=== PATIENT | female | born 1955 | race Caucasian/White ===

== ENCOUNTER 2016-07-17 19:15 | Emergency (ER) | payer MEDICARE ==
[2016-07-17 19:46] VITALS: BP 125/72
[2016-07-17] MEDS ORDERED: Ketorolac 60 MG/2 ML SDV ONE (19:52)
[2016-07-17] MEDS ORDERED: Ketorolac 30 MG/ML SDV IM ONE (19:52)
--- NOTE | 2016-07-17 19:59 | EDM.PDOC ---
ED HPI GENERAL MEDICAL PROBLEM - General Chief Complaint: Lower Extremity Injury/Pain Stated Complaint: ?? LEFT LEG SWOLLEN Time Seen by Provider: 07/17/16 19:38 Source of Information: Reports: Patient History Limitations: Reports: No Limitations - History of Present Illness INITIAL COMMENTS - FREE TEXT/NARRATIVE: Patient presents with left leg swelling and pain that started today while at work. She stands for about 7 hours a day at work and has worked at this job for two months. She has had symptoms like this before a couple of times but not in recent months. This is worse than the previous episodes. She rates the pain at 6/10. She smokes 1.5 ppd. Drinks at least 2 drinks a day. No history of DVT. She has some chronic dyspnea with her smoking. - Related Data Allergies Allergy/AdvReac Type Severity Reaction Status Date / Time beclomethasone [From Qvar] Allergy Chest Verified 01/02/16 09:57 Presssure cyclobenzaprine Allergy Edema Verified 01/02/16 09:57 lidocaine Allergy Anaphylactic Verified 01/02/16 09:57 Shock loperamide Allergy Rash Verified 12/29/15 08:22 peanut Allergy UNKNOWN Verified 12/29/15 08:22 Sulfa (Sulfonamide Allergy Anaphylactic Verified 01/02/16 09:57 Antibiotics) Shock sumatriptan Allergy Nausea Verified 01/02/16 09:57 casting material fiberglass Allergy Edema Uncoded 12/29/15 08:22 METALS Allergy Itching Uncoded 12/29/15 08:22 Home Meds: Home Meds Albuterol [Ventolin HFA] 2 puff INH Q4H PRN 02/25/13 [History] Doxepin [SINEquan] 150 mg PO BEDTIME 02/25/13 [History] Furosemide [Lasix] 40 mg PO QAM 02/25/13 [History] Meloxicam [Mobic] 15 mg PO DAILY 02/25/13 [History] Sertraline HCl 200 mg PO QAM 02/25/13 [History] LORazepam [Ativan] 0.5 mg PO BID PRN 08/26/14 [History] Levothyroxine [Synthroid] 50 mcg PO DAILY 09/16/14 [History] Albuterol/Ipratropium [DuoNeb 3.0-0.5 MG/3 ML] 3 ml NEB Q6HRRT PRN 10/10/14 [ History] Acetaminophen 1,000 mg PO Q4H PRN 12/29/15 [History] Furosemide 20 mg PO WITHLUNCH 12/29/15 [History] Past Medical History HEENT History: Reports: Cataract Cardiovascular History: Reports: SOB on Exertion Respiratory History: Reports: COPD, Pneumonia, Recurrent, SOB, Other (See Below) Other Respiratory History: Duoneb 2x sdaily prn Gastrointestinal History: Reports: Cholelithiasis, GERD Genitourinary History: Reports: Renal Calculus 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: Neurological History: Reports: Migraines Psychiatric History: Reports: ADD, Anxiety, Depression, Mood Swings Endocrine/Metabolic History: Reports: Hypoparathyroidism Oncologic (Cancer) History: Reports: Cervix - Past Surgical History HEENT Surgical History: Reports: Cataract Surgery Female Surgical History: Reports: Section, Cervical Conization, Hysterectomy Social & Family History - Tobacco Use Smoking Status *Q: Current Every Day Smoker Years of Tobacco use: 45 Packs/Tins Daily: 1.5 Used Tobacco, but Quit: No Second Hand Smoke Exposure: No - Caffeine Use Caffeine Use: Reports: Coffee, Soda - Alcohol Use Days Per Week of Alcohol Use: 7 Number of Drinks Per Day: 2 Total Drinks Per Week: 14 - Recreational Drug Use Recreational Drug Use: No Drug Use in Last 12 Months: No - Living Situation & Occupation Living situation: Reports: Occupation: Disabled Review of Systems - Review of Systems Review Of Systems: See Below Eyes: Denies: Blurred Vision, Vision Change Ears: Denies: Dizziness Nose: Denies: Epistaxis Mouth/Throat: Denies: Bleeding Respiratory: Denies: Shortness of Breath Cardiovascular: Denies: Chest Pain, Lightheadedness, Syncope GI/Abdominal: Denies: Abdominal Pain Musculoskeletal: Reports: Leg Pain (The left leg is tender to firm palpation or squeezing throughout. Left calf measures 36.5 cm compared to 35.5 on right. Left leg is slightly warmer to touch. Heather's is negative. Mild edema bilat.) Skin: Reports: No Symptoms. Denies: Cyanosis, Jaundice, Mottled, Pallor, Diaphoresis Neurological: Denies: Confusion, Dizziness, Headache Psychiatric: Denies: Confusion Trauma Exam - Physical Exam Exam: See Below Exam Limited By: No Limitations General Appearance: Reports: Alert, WD/WN, No Apparent Distress Head: Reports: Atraumatic, Normocephalic Eyes: Bilateral Eye: EOMI, Normal Inspection, PERRL Ears: Reports: Normal External Exam, Hearing Grossly Normal Nose: Reports: Normal Inspection, No Blood Throat/Mouth: Reports: Normal Lips, Normal Voice, No Airway Compromise Neck: Reports: Full Range of Motion Respiratory Exam: Reports: No Respiratory Distress, No Accessory Muscle Use, Rhonchi (Mild, fine rhonchi bilat) Cardiovascular: Reports: Regular Rate, Rhythm, No Murmur GI/Abdominal: Reports: No Distention, Pelvis Stable Back: Denies: CVA Tenderness (R), CVA Tenderness (L) Extremities: No Evidence of Injury, Normal Range of Motion, Pedal Edema (mild bilat), Tenderness (Left leg is tender to palpation throughout lower leg and thigh. Heather's negative.) Neurologic: Reports: No Motor/Sensory Deficits, Alert, Normal Mood/Affect, Oriented x 3 Skin: Reports: Normal Color, Warm/Dry - Emiliano Coma Score Best Eye Response (Emiliano): (4) Open Spontaneously Best Verbal Response ([place]): (5) Oriented Best Motor Response ([place]): (6) Obeys Commands Course - Vital Signs Last Recorded V/S: Last Vital Signs Temp 98.6 F 07/17/16 19:44 Pulse 78 07/17/16 19:44 Resp 18 07/17/16 19:44 BP 125/72 07/17/16 19:44 Pulse Ox 91 L 07/17/16 19:44 - Re-Assessments/Exams Free Text/Narrative Re-Assessment/Exam: 07/17/16 20:05 Patient remained stable throughout ER course. Discussed findings and recommendation with patient. The smoking history increases her risk of DVT in conjunction with her leg pain and swelling. Patient agrees to go to [place] for evaluation with US. will drive. Departure - Departure Time of Disposition: 19:59 Disposition: DC/Tfer to Acute Hospital 02 Condition: good Clinical Impression: Pain and swelling of left lower extremity - Discharge Information Forms: ED Department Discharge Additional Instructions: 1. Go to [facility] in [place] for ultrasound evaluation of your leg, as well as treatment if indicated. I talked with Dr. Farah there who is expecting you.
== END 2016-07-17 20:30 ==
LOC: KA.ED 19:15
DX: M79.89 Other specified soft tissue disorders (principal); M79.662 Pain in left lower leg; J44.9 Chronic obstructive pulmonary disease, unspecified; K21.9 Gastro-esophageal reflux disease without esophagitis; F41.9 Anxiety disorder, unspecified; F32.9 Major depressive disorder, single episode, unspecified; F17.210 Nicotine dependence, cigarettes, uncomplicated; G43.909 Migraine, unspecified, not intractable, without status migrainosus; E20.9 Hypoparathyroidism, unspecified; Z98.49 Cataract extraction status, unspecified eye; Z90.710 Acquired absence of both cervix and uterus; Z88.2 Allergy status to sulfonamides; Z91.010 Allergy to peanuts; Z88.8 Allergy status to other drugs, medicaments and biological substances; Z79.899 Other long term (current) drug therapy
CPT/HCPCS: 96372; 99283; J1885

== ENCOUNTER 2016-10-16 22:45 | Emergency (ER) | payer MEDICARE, SELFPAY ==
[2016-10-16] MEDS ORDERED: Albuterol/Ipratropium 3.0-0.5 MG/3 ML Neb Soln ONE (23:31)
[2016-10-16] MEDS ORDERED: Albuterol/Ipratropium 3.0-0.5 MG/3 ML Neb Soln NEB ONE (23:37)
--- NOTE | 2016-10-16 23:46 | EDM.PDOC ---
ED HPI GENERAL MEDICAL PROBLEM - General Chief Complaint: Respiratory Problem Stated Complaint: painful cough Time Seen by Provider: 10/16/16 23:27 Source of Information: Reports: Patient History Limitations: Reports: No Limitations - History of Present Illness INITIAL COMMENTS - FREE TEXT/NARRATIVE: Patient presents with cough and dyspnea worsening for a week. Six days ago she saw her PCP; chest xray showed COPD and a possible developing right lung base pneumonia per report which pt provided. She has been taking doxycycline since then without improvement. She still smokes some. She doesn't use oxygen at home. - Related Data Allergies Allergy/AdvReac Type Severity Reaction Status Date / Time beclomethasone [From Qvar] Allergy Chest Verified 07/17/16 20:12 Presssure cyclobenzaprine Allergy Edema Verified 07/17/16 20:12 lidocaine Allergy Anaphylactic Verified 07/17/16 20:12 Shock loperamide Allergy Rash Verified 07/17/16 20:12 peanut Allergy UNKNOWN Verified 07/17/16 20:12 Sulfa (Sulfonamide Allergy Anaphylactic Verified 07/17/16 20:12 Antibiotics) Shock sumatriptan Allergy Nausea Verified 07/17/16 20:12 casting material fiberglass Allergy Unknown Edema Uncoded 07/17/16 20:12 METALS Allergy Unknown Itching Uncoded 07/17/16 20:12 Home Meds: Home Meds Albuterol [Ventolin HFA] 2 puff INH Q4H PRN 02/25/13 [History] Doxepin [SINEquan] 150 mg PO BEDTIME 02/25/13 [History] Furosemide [Lasix] 40 mg PO QAM 02/25/13 [History] Meloxicam [Mobic] 15 mg PO DAILY 02/25/13 [History] Sertraline HCl 200 mg PO QAM 02/25/13 [History] LORazepam [Ativan] 0.5 mg PO BID PRN 08/26/14 [History] Levothyroxine [Synthroid] 50 mcg PO DAILY 09/16/14 [History] Albuterol/Ipratropium [DuoNeb 3.0-0.5 MG/3 ML] 3 ml NEB Q6HRRT PRN 10/10/14 [ History] Acetaminophen 1,000 mg PO Q4H PRN 12/29/15 [History] Furosemide 20 mg PO WITHLUNCH 12/29/15 [History] Past Medical History HEENT History: Reports: Cataract Other HEENT History: Treated for pink eye last week. 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: Neurological History: Reports: Migraines Psychiatric History: Reports: ADD, Anxiety, Depression, Mood Swings Endocrine/Metabolic History: Reports: Hypoparathyroidism Oncologic (Cancer) History: Reports: Cervix - Past Surgical History HEENT Surgical History: Reports: Cataract Surgery Female Surgical History: Reports: Section, Cervical Conization, Hysterectomy Social & Family History - Tobacco Use Smoking Status *Q: Current Every Day Smoker Years of Tobacco use: 45 Packs/Tins Daily: 1.5 Used Tobacco, but Quit: No Second Hand Smoke Exposure: No - Caffeine Use Caffeine Use: Reports: Coffee, Soda - Alcohol Use Days Per Week of Alcohol Use: 7 Number of Drinks Per Day: 2 Total Drinks Per Week: 14 - Recreational Drug Use Recreational Drug Use: No Drug Use in Last 12 Months: No - Living Situation & Occupation Living situation: Reports: Occupation: Disabled ED ROS GENERAL - Review of Systems Review Of Systems: See Below Constitutional: Reports: Diaphoresis (sweat on her forehead with coughing spells.). Denies: Fever HEENT: Reports: No Symptoms Respiratory: Reports: Shortness of Breath, Wheezing, Cough Cardiovascular: Denies: Chest Pain, Lightheadedness, Syncope GI/Abdominal: Denies: Abdominal Pain : Reports: No Symptoms Musculoskeletal: Reports: No Symptoms Skin: Denies: Cyanosis, Jaundice, Mottled, Pallor Neurological: Denies: Confusion, Seizure, Syncope Psychiatric: Reports: Anxiety. Denies: Agitation, Confusion ED EXAM, GENERAL - Physical Exam Exam: See Below Exam Limited By: No Limitations General Appearance: Alert, WD/WN, No Apparent Distress Eye Exam: Bilateral Eye: EOMI, Normal Inspection, PERRL Ears: Normal External Exam, Hearing Grossly Normal Nose: Normal Inspection, No Blood Throat/Mouth: Normal Inspection, Normal Lips, Normal Voice, No Airway Compromise Head: Atraumatic, Normocephalic Neck: Normal Inspection, Full Range of Motion Respiratory/Chest: Decreased Breath Sounds, Crackles (RLL), Wheezing ( expiratory throughout), Accessory Muscle Use. No: Stridor Cardiovascular: Regular Rate, Rhythm, No Murmur Back Exam: No: CVA Tenderness (L), CVA Tenderness (R) Extremities: Normal Inspection, Normal Range of Motion, No Pedal Edema Neurological: Alert, Oriented, Normal Cognition, No Motor/Sensory Deficits Psychiatric: Normal Affect, Normal Mood Skin Exam: Warm, Dry, Intact, Normal Color, No Rash Course - Orders/Labs/Meds Orders: Active Orders 24 hr Category Date Time Status RT Aerosol Therapy [RC] ASDIRECTED Care 10/16/16 23:38 Ordered Chest 2V [CR] Stat Exams 10/16/16 23:37 Ordered BMP [BASIC METABOLIC PANEL,BMP] [CHEM] Stat Lab 10/16/16 23:37 Ordered CBC WITH AUTO DIFF [HEME] Stat Lab 10/16/16 23:37 Ordered Albuterol/Ipratropium [DuoNeb 3.0-0.5 MG/3 ML] Med 10/16/16 23:37 Once 3 ml NEB ONETIME ONE Meds: Medications Discontinued Medications Generic Name Dose Route Start Last Admin Trade Name Freq PRN Reason Stop Dose Admin Albuterol/Ipratropium Confirm 10/16/16 23:31 Duoneb 3.0-0.5 Mg/3 Ml Administered 10/16/16 23:32 Dose 3 ml .ROUTE .STK-MED ONE - Re-Assessments/Exams Free Text/Narrative Re-Assessment/Exam: 10/17/16 00:31 Radiology report shows no acute cardiopulmonary process. I agree CXR looks clear. WBC is normal. Discussed findings with patient. She is supposed to be getting a total knee replacement very soon and hopes to not have to cancel that. Will switch antibiotics and add a steroid to help clear this up and improve her breathing. Patient remained stable throughout ER course. We advised pt to call her doctor and inform her of the ER visit; she was unable to clear her for surgery and will likely need to see her again. Departure - Departure Time of Disposition: 00:44 Disposition: Home, Self-Care 01 Condition: Fair Clinical Impression: COPD with exacerbation CAP (community acquired pneumonia) Qualifiers: Laterality: right Lung location: lower lobe of lung Qualified Code(s): J18.1 - Lobar pneumonia, unspecified organism - Discharge Information Instructions: Chronic Obstructive Pulmonary Disease Exacerbation, [id number] Forms: ED Department Discharge Additional Instructions: 1. Take the medications as directed. 2. Follow up with your PCP in 2-3 days for recheck or sooner if not improving or if worsening. - My Orders Last 24 Hours: My Active Orders 10/16/16 23:37 Chest 2V [CR] Stat BMP [BASIC METABOLIC PANEL,BMP] [CHEM] Stat CBC WITH AUTO DIFF [HEME] Stat Albuterol/Ipratropium [DuoNeb 3.0-0.5 MG/3 ML] 3 ml NEB ONETIME ONE 10/16/16 23:38 RT Aerosol Therapy [RC] ASDIRECTED - Assessment/Plan Last 24 Hours: My Active Orders 10/16/16 23:37 Chest 2V [CR] Stat BMP [BASIC METABOLIC PANEL,BMP] [CHEM] Stat CBC WITH AUTO DIFF [HEME] Stat Albuterol/Ipratropium [DuoNeb 3.0-0.5 MG/3 ML] 3 ml NEB ONETIME ONE 10/16/16 23:38 RT Aerosol Therapy [RC] ASDIRECTED
[2016-10-17] MEDS ORDERED: Ketorolac 30 MG/ML SDV IM ONE (00:19)
[2016-10-17] MEDS ORDERED: Azithromycin 250 MG Tab PO ONE (00:19)
[2016-10-17] MEDS ORDERED: methylPREDNISolone Sodium Succinate 125 MG/2 ML SDV IM ONE (00:19)
[2016-10-17] MEDS ORDERED: Levofloxacin 500 MG Tab PO ONE (00:19)
[2016-10-17 00:20] LABS: CHLORIDE,CL 101 mmol/L (98-115); SODIUM,NA 138 mmol/L (136-145)
[2016-10-17] MEDS ORDERED: methylPREDNISolone Sodium Succinate 125 MG/2 ML SDV ONE (00:22)
[2016-10-17] MEDS ORDERED: Ketorolac 30 MG/ML SDV ONE (00:22)
[2016-10-17 00:50] VITALS: BP 110/61
== END 2016-10-17 01:25 | disposition home or self-care (01) ==
LOC: KA.ED 22:45
DX: J44.1 Chronic obstructive pulmonary disease with (acute) exacerbation (principal); J18.9 Pneumonia, unspecified organism; G43.909 Migraine, unspecified, not intractable, without status migrainosus; F17.210 Nicotine dependence, cigarettes, uncomplicated; F41.9 Anxiety disorder, unspecified; F32.9 Major depressive disorder, single episode, unspecified; K21.9 Gastro-esophageal reflux disease without esophagitis; Z88.2 Allergy status to sulfonamides; Z91.018 Allergy to other foods; Z87.01 Personal history of pneumonia (recurrent); Z91.048 Other nonmedicinal substance allergy status; Z79.899 Other long term (current) drug therapy; Z88.8 Allergy status to other drugs, medicaments and biological substances
CPT/HCPCS: 36415; 71020; 80048; 85025; 94640; 96372; 99285; A9270; J1885; J2930; 99283

== ENCOUNTER 2016-12-16 13:53 | Inpatient (IN) | payer MEDICARE, OTHER ==
[2016-12-16] MEDS: Methocarbamol 500 MG Tab PO SCH ×2 (14:19→21:22)
[2016-12-16] MEDS: Acetaminophen/HYDROcodone 325-5 MG Tab PO PRN ×2 (14:19→21:23)
[2016-12-16] MEDS ORDERED: Nicotine 21 MG/24 Hr Patch TRDERM SCH (15:30)
[2016-12-16] MEDS ORDERED: Nicotine 14 MG/24 Hr Patch TRDERM SCH (15:30)
[2016-12-16] MEDS ORDERED: Albuterol/Ipratropium 3.0-0.5 MG/3 ML Neb Soln NEB PRN (16:27)
[2016-12-16] MEDS ORDERED: Methocarbamol 500 MG Tab PO PRN (16:29)
[2016-12-16] MEDS ORDERED: Lactulose Soln 10 GM/15 ML 30 ML UD Cup PO PRN (16:45)
--- NOTE | 2016-12-16 17:09 | PCM.HP ---
H&P History of Present Illness - General Date of Service: 12/16/16 Admit Problem/Dx: Admission Diagnosis/Problem Admission Diagnosis/Problem Arthroplasty of knee Source of Information: Patient, Old Records History Limitations: Reports: Physical Impairment - History of Present Illness Initial Comments - Free Text/Narative: 61 yo female Pt is admitted to swing bed from [facility] where she underwent a left TKA on 12/13/[address] Domínguez. Post op she had issues with pain control and was started on scheduled MS Contin. However, she got drowsier and was unable to participate in therapies. The MS Contin was discontinued and she was placed on scheduled Robaxin with prn hydrocodone for break through pain control. She was not placed on any scheduled NSAIDs due to strong history of Gastric ulcer and GERD. She did have some sundowning with transient confusion, predominantly right after anesthesia. This did clear prior to discharge. She is being admitted with Lovenox SQ for DVT prophylaxis which is to continue another 7 days. Robaxin 500 mg tid for about 7 days then change to prn spasms and hydrocodone prn breakthrough pain. Pt reports she has a history of chronic diarrhea. She was placed on standard bowel regimen while on opioids in [place]. Pt is not aware of having used any stool softeners while in the hospital and she does deny any recent diarrhea. Pt was on lasix 40 mg in am and 20 mg at noon prior to [facility] hospitalization. Lasix was decreased to 20 mg bid due to poor oral intake and for fear of inducing renal failure. We are to monitor her in swing bed regarding need to re -uptitrate. Pt is a smoker with COPD. She had nicoderm patchs 35 mg/24 hours at [facility]. She did have some mild COPD exacerbation and was on scheduled nebs post op and did well by the second day. She reports she uses a nebulizer at home routinely for over 20 years. Pt has a history of major depression, PTSD, ADHD, ETOH dependence in full remission per prior psychiatry services review. She is on sertraline, Doxepin and lorazepam. Pt states when she is not on these medications, she is able to notice worsening of symptoms. Pt has history of hypthyroidism. Her last TSH on [facility] chart was 0.84 on 2015. Symptom Onset Date: 12/13/16 (TKA) Location: Reports: Lower Extremity, Left (Pain is constant. 3-4/10 after pain meds and 8/10 at time that she needs the pain meds.) Improves with: Reports: Cold Therapy, Medication Worsens with: Reports: Movement Left leg Pain Score (Numeric/FACES): 10 - Related Data Allergies/Adverse Reactions: Allergies Allergy/AdvReac Type Severity Reaction Status Date / Time beclomethasone [From Qvar] Allergy Chest Verified 12/16/16 14:40 Presssure cyclobenzaprine Allergy Edema Verified 12/16/16 14:40 latex Allergy Redness Verified 12/16/16 14:40 lidocaine Allergy Anaphylactic Verified 12/16/16 14:40 Shock loperamide Allergy Rash Verified 12/16/16 14:40 peanut Allergy Throat Verified 12/16/16 14:40 swelling Sulfa (Sulfonamide Allergy Anaphylactic Verified 12/16/16 14:40 Antibiotics) Shock sumatriptan Allergy Nausea Verified 12/16/16 14:40 casting material fiberglass Allergy Edema Uncoded 12/16/16 14:40 METALS Allergy Itching Uncoded 12/16/16 14:40 Home Medications: Home Meds Sertraline HCl 200 mg PO QAM 02/25/13 [History] LORazepam [Ativan] 0.5 mg PO BID 08/26/14 [History] Levothyroxine [Synthroid] 50 mcg PO DAILY 09/16/14 [History] Albuterol/Ipratropium [DuoNeb 3.0-0.5 MG/3 ML] 3 ml NEB Q6HRRT PRN 10/10/14 [ History] Furosemide 20 mg PO BID 12/29/15 [History] Albuterol Sulfate [Proair Hfa] 2 puff INH Q6H PRN 12/16/16 [History] Doxepin HCl 150 mg PO BEDTIME 12/16/16 [History] Enoxaparin Sodium [Lovenox] 30 mg SQ BID 12/16/16 [History] Hydrocodone/Acetaminophen [Hydrocodon-Acetaminophen 5-325] 1 - 2 each PO Q4H PRN 12/16/16 [History] Lactulose [Chronulac] 30 ml PO DAILY PRN 12/16/16 [History] Methocarbamol [Robaxin] 500 mg PO TID 12/16/16 [History] Methocarbamol [Robaxin] 500 mg PO TID PRN 12/16/16 [History] Multivitamin [Multi-Vitamin Daily] 1 tab PO DAILY 12/16/16 [History] Polyethylene Glycol [Polyox Wsr-301] 1 packet PO DAILY 12/16/16 [History] Sennosides/Docusate Sodium [Senna-Docusate Sodium] 1 each PO BID 12/16/16 [ History] Past Medical History HEENT History: Reports: Allergic Rhinitis, Cataract, Impaired Vision, Sinusitis Other HEENT History: Treated for pink eye last week. Cardiovascular History: Reports: SOB on Exertion Other Cardiovascular History: Takes Lasix for "fluid retention" Respiratory History: Reports: COPD, Intubation, Previous, Pneumonia, Recurrent, SOB, Other (See Below) Other Respiratory History: Duoneb prn Gastrointestinal History: Reports: Cholelithiasis, Gastritis, GERD Genitourinary History: Reports: Renal Calculus [employer] PA[employer] HELPER History: Reports: Musculoskeletal History: Reports: Arthritis, Osteoarthritis Other Musculoskeletal History: pt had total knee replacement on 12/13/16 in [place] Neurological History: Reports: Headaches, Chronic, Migraines Psychiatric History: Reports: ADHD, Addiction (alcohol abuse in remission), Anxiety, Depression, Mood Swings Endocrine/Metabolic History: Reports: Hypothyroidism Oncologic (Cancer) History: Reports: Cervix - Infectious Disease History Infectious Disease History: Reports: None - Past Surgical History HEENT Surgical History: Reports: Cataract Surgery Cardiovascular Surgical History: Reports: None Respiratory Surgical History: Reports: None GI Surgical History: Reports: Appendectomy, Cholecystectomy, Colonoscopy Female Surgical History: Reports: Section, Cervical Conization, Hysterectomy Endocrine Surgical History: Reports: None Neurological Surgical History: Reports: None Musculoskeletal Surgical History: Reports: Knee Replacement Oncologic Surgical History: Reports: None Social & Family History - Family History Family Medical History: Noncontributory - Tobacco Use Smoking Status *Q: Current Every Day Smoker Years of Tobacco use: 40 Packs/Tins Daily: 2 Used Tobacco, but Quit: No Second Hand Smoke Exposure: No - Caffeine Use Caffeine Use: Reports: Coffee - Alcohol Use Days Per Week of Alcohol Use: 7 Number of Drinks Per Day: 2 Total Drinks Per Week: 14 - Recreational Drug Use Recreational Drug Use: No Drug Use in Last 12 Months: No - Living Situation & Occupation Living situation: Reports: Occupation: Disabled H&P Review of Systems - Review of Systems: Review Of Systems: See Below General: Reports: No Symptoms HEENT: Reports: No Symptoms Pulmonary: Reports: Cough, Other (COPD. Smoker using nicoderm patch) Cardiovascular: Reports: No Symptoms Gastrointestinal: Reports: Other (reports history of chronic diarrhea. She has not had diarrhea while on opioids and bowel regimen.) Genitourinary: Reports: No Symptoms Musculoskeletal: Reports: Other (left leg/knee pain. ) Psychiatric: Reports: No Symptoms Neurological: Reports: No Symptoms Hematologic/Lymphatic: Reports: No Symptoms Exam - Exam Exam: See Below - Vital Signs Vital Signs: Last Vital Signs Temp 98.9 F 12/16/16 14:35 Pulse 96 12/16/16 14:35 Resp 16 12/16/16 14:35 BP 151/86 H 12/16/16 14:35 Pulse Ox 96 12/16/16 14:35 Weight: 163 lb 9.6 oz - Exam General: Alert, Oriented, Cooperative HEENT: Conjunctiva Clear Neck: Supple Lungs: Clear to Auscultation, Other (non productive cough during visit) Cardiovascular: Regular Rate, Regular Rhythm GI/Abdominal Exam: Soft, Non-Tender Extremities: Other (left knee with ELAINE wrap. Left lower extremity 1+ pedal edema. Right lower leg No edema.) Skin: Other (left knee dressing intact) Neurological: Normal Speech, Normal Tone Neuro Extensive - Mental Status: Alert, Oriented x3, Normal Mood/Affect, Normal Cognition Psychiatric: Alert, Normal Affect, Normal Mood *Q Meaningful Use (ADM) - VTE *Q VTE Criteria *Q: VTE Mechanical Contraindications *Q: At Risk for Falls (L)TKA) - VTE Risk Assess *Q Each Risk Factor Represents 1 Point: History of prior major surgery less than 1 month Total Score 1 Point Risk Factors: 1 Each Risk Factor Represents 2 Points: Age 60 - 74 Years Total Score 2 Point Risk Factors: 2 Each Risk Factor Represents 3 Points: None (Pt is on lovenox) Total Score 3 Point Risk Factors: 0 Each Risk Factor Represents 5 Points: Elective Major Lower Extremity Arthroplasty (on lovenox) Total Score 5 Point Risk Factors: 5 Venous Thromboembolism Risk Factor Score *Q: 8 - Stroke *Q Stroke Criteria *Q: Aspirin Contraindications Stroke *Q: Other (Use Special Inst) (on lovenox) - AMI *Q AMI Criteria *Q: Problem List Initiated/Reviewed/Updated: Yes Orders Last 24hrs: Active Orders 24 hr Category Date Time Status Patient Status [ADT] Routine ADT 12/16/16 16:33 Ordered Ambulate [RC] PER UNIT ROUTINE Care 12/16/16 16:33 Ordered Ambulate [RC] PER UNIT ROUTINE Care 12/16/16 16:44 Ordered Antiembolic Devices [RC] PER UNIT ROUTINE Care 12/16/16 16:46 Ordered Height and Weight [RC] PER UNIT ROUTINE Care 12/16/16 16:43 Ordered May Shower [RC] ASDIRECTED Care 12/16/16 16:33 Ordered Oxygen Therapy [RC] PRN Care 12/16/16 16:33 Ordered Up With Assistance [RC] ASDIRECTED Care 12/16/16 16:33 Ordered VTE/DVT Education [RC] PER UNIT ROUTINE Care 12/16/16 16:33 Ordered Vital Signs [RC] PER UNIT ROUTINE Care 12/16/16 16:33 Ordered Consult to Coagulation Operator [CONS] Routine Cons 12/16/16 16:33 Ordered OT Evaluation and Treatment [CONS] Routine Cons 12/16/16 16:33 Ordered PT Evaluation and Treatment [CONS] Routine Cons 12/16/16 16:33 Ordered Respiratory Care Assess and Treatment [CONS] Routine Cons 12/16/16 16:33 Ordered Regular Diet [DIET] Diet 12/16/16 Dinner Ordered BASIC METABOLIC PANEL,BMP [CHEM] Routine Lab 12/18/16 05:00 Ordered TSH ULTRASENSITIVE [CHEM] Routine Lab 12/18/16 05:00 Ordered Acetaminophen/HYDROcodone [Hayes 325-5 MG] Med 12/16/16 14:00 Active 1 - 2 tab PO Q4H PRN Albuterol [Ventolin HFA] Med 12/16/16 16:27 Ordered 2 puff INH Q6H PRN Albuterol/Ipratropium [DuoNeb 3.0-0.5 MG/3 ML] Med 12/16/16 16:27 Ordered 3 ml NEB Q6HRRT PRN Docusate Sodium/Sennosides [Senna Plus] Med 12/16/16 21:00 Ordered 1 each PO BID Doxepin HCl [Doxepin HCl] Med 12/16/16 21:00 Ordered 150 mg PO BEDTIME Enoxaparin [Lovenox] Med 12/16/16 21:00 Ordered 30 mg SUBCUT BID Furosemide [Lasix] Med 12/16/16 21:00 Ordered 20 mg PO BID LORazepam [Ativan] Med 12/16/16 21:00 Ordered 0.5 mg PO BID Lactulose [Chronulac] Med 12/16/16 16:29 Ordered 30 ml PO DAILY PRN Levothyroxine [Synthroid] Med 12/17/16 09:00 Ordered 50 mcg PO DAILY Methocarbamol [Robaxin] Med 12/16/16 14:15 Active 500 mg PO TID Methocarbamol [Robaxin] Med 12/16/16 21:00 Ordered 500 mg PO TID Methocarbamol [Robaxin] Med 12/16/16 16:29 Ordered 500 mg PO TID PRN Methocarbamol [Robaxin] Med 12/23/16 14:00 Active 500 mg PO TID PRN Multivitamin [Multi-Vitamin Daily] Med 12/17/16 09:00 Ordered 1 tab PO DAILY Nicotine [Habitrol] Med 12/17/16 10:00 Ordered 14 mg TRDERM DAILY Nicotine [Habitrol] Med 12/17/16 10:00 Ordered 21 mg TRDERM DAILY Polyethylene Glycol [Polyox Wsr-301] Med 12/17/16 09:00 Ordered 1 packet PO DAILY Sertraline HCl [Sertraline HCl] Med 12/17/16 09:00 Ordered 200 mg PO QAM Antiembolic Hose [OM.PC] Per Unit Routine Oth 12/16/16 16:44 Ordered Resuscitation Status Routine Resus Stat 12/16/16 16:33 Ordered Medication Orders Hydrocodone Bitart/Acetaminophen (Hayes 325-5 Mg) 1 - 2 tab PO Q4H PRN PRN Reason: Pain Last Admin: 12/16/16 14:19 Dose: 2 tab Albuterol (Ventolin Hfa) 0 gm INH Q6H PRN PRN Reason: Wheezing Albuterol/Ipratropium (Duoneb 3.0-0.5 Mg/3 Ml) 3 ml NEB Q6HRRT PRN PRN Reason: Shortness of Breath Doxepin HCl (Sinequan) 150 mg PO BEDTIME DANA Enoxaparin Sodium (Lovenox) 30 mg SUBCUT BID DANA Stop: 12/23/16 09:01 Furosemide (Lasix) 20 mg PO BIDDIURETIC DANA Lactulose (Cephulac) 20 gm PO DAILY PRN PRN Reason: CONSTIPATION Levothyroxine Sodium (Synthroid) 50 mcg PO ACBREAKFAST DANA Lorazepam (Ativan) 0.5 mg PO BID DANA Methocarbamol (Robaxin) 500 mg PO TID [facility] Stop: 12/23/16 09:01 Last Admin: 12/16/16 14:19 Dose: 500 mg Methocarbamol (Robaxin) 500 mg PO TID PRN PRN Reason: PAIN Methocarbamol (Robaxin) 500 mg PO TID PRN PRN Reason: Spasms Methocarbamol (Robaxin) 500 mg PO TID DANA Multivitamins/Minerals (Centrum) 1 tab PO DAILY DANA Nicotine (Habitrol) 21 mg TRDERM DAILY DANA Nicotine (Habitrol) 14 mg TRDERM DAILY DANA Polyethylene Glycol (Miralax) 17 gm PO DAILY DANA Senna/Docusate Sodium (Senna Plus) 1 tab PO BID DANA Sertraline HCl (Zoloft) 200 mg PO DAILY [facility] Assessment/Plan Comment:: 1. S/P Left TKA: Admit to swing bed for PT, OT, pain management. Continue same robaxin 500 mg tid x 7 days then tid prn. Hydrocodone prn breakthrough pain. Lovenox for DVT prophylaxis for 7 more days. 2. COPD: Incentive Spirometry q hr while awake. DuoNebs bid and q4 hrs prn. 3. History of lower extremity edema. Lasix has been cut back from 40 in am and 20 in pm to 20 bid as pt oral intake was decreased in [facility] and to prevent kidney injury. Will monitor and increase if needed. 4. Depression and anxiety: continue same Doxipan, zoloft and lorazepam. 5. History of ETOH dependence in remission. Will monitor opioids closely. 6. Hypothryroid: will recheck TSH with next labs Saturday. Continue levothyroxine. 7. GERD: prior history of gastric ulcer. 8. Code status: Pt has history of depression and states she has considered being DNR status due to her depression. She has had multiple offers for living will but had taken papers home and never completed them. She will continue to be full code and talk with social media content specialist about living will. 9. Nicotine dependence: continue on nicoderm patches
[2016-12-16] MEDS: Furosemide 20 MG Tab PO SCH (17:13)
[2016-12-16] MEDS: Albuterol/Ipratropium 3.0-0.5 MG/3 ML Neb Soln NEB SCH (20:16)
[2016-12-16] MEDS ORDERED: Methocarbamol 500 MG Tab PO SCH (21:00)
[2016-12-16] MEDS: LORazepam 0.5 MG Tab PO SCH (21:21)
[2016-12-16] MEDS: Enoxaparin 30 MG/0.3 ML Syringe SUBCUT SCH (21:21)
[2016-12-16] MEDS: Doxepin 25 MG Cap PO SCH (21:22)
[2016-12-17] MEDS: Levothyroxine 50 MCG Tab PO SCH (07:13)
[2016-12-17] MEDS: Albuterol/Ipratropium 3.0-0.5 MG/3 ML Neb Soln NEB SCH ×2 (07:13→15:10)
[2016-12-17] MEDS: LORazepam 0.5 MG Tab PO SCH ×2 (08:42→20:44)
[2016-12-17] MEDS: Enoxaparin 30 MG/0.3 ML Syringe SUBCUT SCH ×2 (08:42→20:45)
[2016-12-17] MEDS: Furosemide 20 MG Tab PO SCH ×2 (08:42→14:07)
[2016-12-17] MEDS: Multivitamins with Minerals/Iron/Folic Acid/Lycopene Tab PO SCH (08:42)
[2016-12-17] MEDS: Sertraline 50 MG Tab PO SCH (08:43)
[2016-12-17] MEDS: Methocarbamol 500 MG Tab PO SCH ×3 (08:43→20:44)
[2016-12-17] MEDS: Polyethylene Glycol 3350 Powder 17 GM Packet PO SCH (08:43)
[2016-12-17] MEDS: Nicotine 14 MG/24 Hr Patch TRDERM SCH (10:12)
[2016-12-17] MEDS: Nicotine 21 MG/24 Hr Patch TRDERM SCH (10:12)
[2016-12-17] MEDS: Acetaminophen/HYDROcodone 325-5 MG Tab PO PRN ×3 (10:13→20:52)
[2016-12-17] MEDS: Doxepin 25 MG Cap PO SCH (20:45)
[2016-12-18] MEDS: Acetaminophen/HYDROcodone 325-5 MG Tab PO PRN ×5 (01:11→19:53)
[2016-12-18] MEDS: Levothyroxine 50 MCG Tab PO SCH (07:42)
[2016-12-18] MEDS: Furosemide 20 MG Tab PO SCH ×2 (07:42→11:56)
[2016-12-18 08:15] LABS: CHLORIDE,CL 99 mmol/L (98-115); SODIUM,NA 136 mmol/L (136-145)
[2016-12-18] MEDS: Nicotine 21 MG/24 Hr Patch TRDERM SCH (08:27)
[2016-12-18] MEDS: Nicotine 14 MG/24 Hr Patch TRDERM SCH (08:28)
[2016-12-18] MEDS: Polyethylene Glycol 3350 Powder 17 GM Packet PO SCH (08:28)
[2016-12-18] MEDS: Sertraline 50 MG Tab PO SCH (08:29)
[2016-12-18] MEDS: Multivitamins with Minerals/Iron/Folic Acid/Lycopene Tab PO SCH (08:29)
[2016-12-18] MEDS: Methocarbamol 500 MG Tab PO SCH ×3 (08:29→20:34)
[2016-12-18] MEDS: Enoxaparin 30 MG/0.3 ML Syringe SUBCUT SCH ×2 (08:30→20:33)
[2016-12-18] MEDS: LORazepam 0.5 MG Tab PO SCH ×2 (08:33→20:34)
[2016-12-18] MEDS: Albuterol/Ipratropium 3.0-0.5 MG/3 ML Neb Soln NEB SCH ×2 (08:45→15:57)
--- NOTE | 2016-12-18 09:08 | PCM.PN ---
- General Info Date of Service: 12/18/16 Functional Status: Reports: Pain Controlled (On opioid therapy), Tolerating Diet , New Symptoms (Constipation). Denies: Ambulating - Review of Systems General: Denies: Fever Pulmonary: Reports: Shortness of Breath, Cough, Wheezing Cardiovascular: Reports: Edema (Left knee edematous). Denies: Chest Pain Gastrointestinal: Denies: Nausea Musculoskeletal: Reports: Joint Swelling (Left knee swollen) Skin: Reports: Bruising (Left knee) Neurological: Reports: Gait Disturbance Psychiatric: Reports: No Symptoms - Patient Data Vitals - Most Recent: Last Vital Signs Temp 98.7 F 12/18/16 06:40 Pulse 86 12/18/16 06:40 Resp 22 H 12/18/16 06:40 BP 103/82 12/18/16 06:40 Pulse Ox 96 12/18/16 08:45 Weight - Most Recent: 163 lb 9.6 oz I&O - Last 24 Hours: Intake & Output 12/17/16 12/18/16 12/18/16 22:59 06:59 14:59 Intake Total 675 300 Output Total 950 775 Balance -275 -475 Lab Results Last 24 Hours: Laboratory Results - last 24 hr 12/18/16 Range/Units 07:18 Sodium 136 (136-145) mmol/L Potassium 3.3 (3.3-5.3) mmol/L Chloride 99 (98-115) mmol/L Carbon Dioxide 31.5 (21.0-32.0) mmol/L BUN 12 (6-25) mg/dL Creatinine 0.67 (0.51-1.17) mg/dL Est Cr Clr Drug Dosing 74.21 mL/min Estimated GFR (MDRD) > 60 mL/min Glucose 114 H (70-110) mg/dL Calcium 8.8 (8.7-10.3) mg/dL TSH, Ultra Sensitive 2.400 (0.340-4.820) uIU/mL Med Orders - Current: Current Medications Hydrocodone Bitart/Acetaminophen (Shelb[place] 325-5 Mg) 1 - 2 tab PO Q4H PRN PRN Reason: Pain Last Admin: 12/18/16 06:36 Dose: 2 tab Albuterol (Ventolin Hfa) 0 gm INH Q6H PRN PRN Reason: Wheezing Albuterol/Ipratropium (Duoneb 3.0-0.5 Mg/3 Ml) 3 ml NEB Q6HRRT PRN PRN Reason: Shortness of Breath Albuterol/Ipratropium (Duoneb 3.0-0.5 Mg/3 Ml) 3 ml NEB BID@0800,1600 [facility] Last Admin: 12/18/16 08:45 Dose: 3 ml Doxepin HCl (Sinequan) 150 mg PO BEDTIME [facility] Last Admin: 12/17/16 20:45 Dose: 150 mg Enoxaparin Sodium (Lovenox) 30 mg SUBCUT BID [facility] Stop: 12/23/16 09:01 Last Admin: 12/18/16 08:30 Dose: 30 mg Furosemide (Lasix) 20 mg PO BID@0730,1200 [facility] Last Admin: 12/18/16 07:42 Dose: 20 mg Lactulose (Cephulac) 20 gm PO DAILY PRN PRN Reason: CONSTIPATION Levothyroxine Sodium (Synthroid) 50 mcg PO ACBREAKFAST [facility] Last Admin: 12/18/16 07:42 Dose: 50 mcg Lorazepam (Ativan) 0.5 mg PO BID [facility] Last Admin: 12/18/16 08:33 Dose: 0.5 mg Lorazepam (Ativan) 0.5 mg PO DAILY PRN PRN Reason: Anxiety Methocarbamol (Robaxin) 500 mg PO TID [facility] Stop: 12/23/16 09:01 Last Admin: 12/18/16 08:29 Dose: 500 mg Methocarbamol (Robaxin) 500 mg PO TID PRN PRN Reason: PAIN Multivitamins/Minerals (Centrum) 1 tab PO DAILY [facility] Last Admin: 12/18/16 08:29 Dose: 1 tab Nicotine (Habitrol) 21 mg TRDERM DAILY [facility] Last Admin: 12/18/16 08:27 Dose: 21 mg Nicotine (Habitrol) 14 mg TRDERM DAILY [facility] Last Admin: 12/18/16 08:28 Dose: 14 mg Polyethylene Glycol (Miralax) 17 gm PO DAILY [facility] Last Admin: 12/18/16 08:28 Dose: 17 gm Senna/Docusate Sodium (Senna Plus) 1 tab PO BID [facility] Last Admin: 12/18/16 08:28 Dose: 1 tab Sertraline HCl (Zoloft) 200 mg PO DAILY [facility] Last Admin: 12/18/16 08:29 Dose: 200 mg Discontinued Medications Albuterol/Ipratropium (Duoneb 3.0-0.5 Mg/3 Ml) 3 ml NEB BIDRT [facility] Last Admin: 12/17/16 07:13 Dose: 3 ml Furosemide (Lasix) 20 mg PO BIDDIURETIC [facility] Last Admin: 12/17/16 14:07 Dose: 20 mg Methocarbamol (Robaxin) 500 mg PO TID PRN PRN Reason: Spasms Nicotine (Habitrol) 21 mg TRDERM DAILY [facility] Last Admin: 12/16/16 09:03 Dose: 21 mg Nicotine (Habitrol) 14 mg TRDERM DAILY [facility] Last Admin: 12/16/16 09:04 Dose: 14 mg - Exam Quality Assessment: Supplemental Oxygen General: Alert, Oriented Lungs: Wheezing (Wheezes audible without stethoscope), Other Cardiovascular: Regular Rhythm Skin: Warm, Dry Wound/Incisions: Dressing Dry and Intact, No Drainage Psy/Mental Status: Alert, Normal Affect - Problem List Review Problem List Initiated/Reviewed/Updated: Yes - Plan Plan:: HISTORY OF PRESENT ILLNESS This 61 yo admitted to [facility] from [facility] where she underwent a left TKA on 12/13/[address] Domínguez--orthopedic surgeon. She states she is requiring [facility] until modifications in her home were completed in which includes remodeling bathroom. He states she has a total of 16 steps in her home. she has 3 steps to enter home with all necessary items on main floor. The bathroom is on main level with active construction to convert tub into walk in shower. Her bedroom is up 13 steps. She would be fine sleeping on couch if needed until she can accomodate stairs. Goal is to return home as soon as able with controlled pain. CODE STATUS, full code Primary assessment/plan S/P Left TKA: Receiving physical therapy however anticipate short stay Chronic obstructive pulmonary disease, aggressive pulmonary toileting, ICS, duo nebs, oxygen support. Constipation, will add Movantik. GI stress prophylaxis with con-conmitent GERD, will add H1 DVT prophylaxis, continue with Lovenox, stop date Secondary assessment/plan Depression and anxiety: PTSD, ADHD, continue same Doxipan, zoloft and lorazepam. History of ETOH dependence in remission. Hypothyroidism; TSH 2.4, on thyroid replacement therapy Nicotine dependence; on replacement therapy. History of lower extremity edema. Home Lasix was 40mg a.m. and 20 mg p.m. Recently reduced to 20 mg twice a day bid Discharge planning, continue with physical therapy, do not anticipate lengthy stay, patient can go home as soon as pain is controlled and she is stable for more respiratory/pain management status.
[2016-12-18] MEDS: Naloxegol Oxalate 25 MG Tab PO SCH (09:55)
[2016-12-18] MEDS: LORazepam 0.5 MG Tab PO PRN (18:42)
[2016-12-18] MEDS: Cephalexin 250 MG Cap PO SCH (19:53)
[2016-12-18] MEDS: Doxepin 25 MG Cap PO SCH (20:35)
[2016-12-19] MEDS: Cephalexin 250 MG Cap PO SCH ×4 (00:53→18:43)
[2016-12-19] MEDS: Acetaminophen/HYDROcodone 325-5 MG Tab PO PRN ×5 (00:53→18:43)
[2016-12-19] MEDS: Levothyroxine 50 MCG Tab PO SCH (08:11)
[2016-12-19] MEDS: Furosemide 20 MG Tab PO SCH ×2 (08:11→12:04)
[2016-12-19] MEDS: Albuterol/Ipratropium 3.0-0.5 MG/3 ML Neb Soln NEB SCH ×2 (08:39→16:14)
[2016-12-19] MEDS: LORazepam 0.5 MG Tab PO SCH ×2 (09:19→21:00)
[2016-12-19] MEDS: Nicotine 14 MG/24 Hr Patch TRDERM SCH (09:20)
[2016-12-19] MEDS: Enoxaparin 30 MG/0.3 ML Syringe SUBCUT SCH ×2 (09:20→21:00)
[2016-12-19] MEDS: Nicotine 21 MG/24 Hr Patch TRDERM SCH (09:20)
[2016-12-19] MEDS: Methocarbamol 500 MG Tab PO SCH ×3 (09:21→21:00)
[2016-12-19] MEDS: Naloxegol Oxalate 25 MG Tab PO SCH (09:21)
[2016-12-19] MEDS: Sertraline 50 MG Tab PO SCH (09:21)
[2016-12-19] MEDS: Polyethylene Glycol 3350 Powder 17 GM Packet PO SCH (09:23)
[2016-12-19] MEDS: Multivitamins with Minerals/Iron/Folic Acid/Lycopene Tab PO SCH (09:29)
[2016-12-19] MEDS ORDERED: oxyCODONE 5 MG Tab PO ONE (18:55)
[2016-12-19] MEDS: Doxepin 25 MG Cap PO SCH (21:01)
[2016-12-20] MEDS: Acetaminophen/HYDROcodone 325-5 MG Tab PO PRN ×5 (00:06→20:30)
[2016-12-20] MEDS: Cephalexin 250 MG Cap PO SCH ×4 (00:06→18:32)
[2016-12-20] MEDS: Levothyroxine 50 MCG Tab PO SCH (07:44)
[2016-12-20] MEDS: Furosemide 20 MG Tab PO SCH ×2 (07:44→12:04)
[2016-12-20] MEDS: LORazepam 0.5 MG Tab PO SCH ×2 (08:31→20:28)
[2016-12-20] MEDS: Nicotine 21 MG/24 Hr Patch TRDERM SCH (08:32)
[2016-12-20] MEDS: Polyethylene Glycol 3350 Powder 17 GM Packet PO SCH (08:32)
[2016-12-20] MEDS: Nicotine 14 MG/24 Hr Patch TRDERM SCH (08:33)
[2016-12-20] MEDS ORDERED: cefTRIAXone 1 GM Vial IM ONE (08:34)
[2016-12-20] MEDS: Methocarbamol 500 MG Tab PO SCH ×3 (08:35→20:29)
[2016-12-20] MEDS: Multivitamins with Minerals/Iron/Folic Acid/Lycopene Tab PO SCH (08:37)
[2016-12-20] MEDS: Enoxaparin 30 MG/0.3 ML Syringe SUBCUT SCH ×2 (08:37→20:29)
[2016-12-20] MEDS: Naloxegol Oxalate 25 MG Tab PO SCH (08:39)
[2016-12-20] MEDS: Sertraline 50 MG Tab PO SCH (08:40)
[2016-12-20] MEDS: Albuterol/Ipratropium 3.0-0.5 MG/3 ML Neb Soln NEB SCH ×2 (08:44→15:38)
[2016-12-20] MEDS: Doxepin 25 MG Cap PO SCH (20:29)
[2016-12-21] MEDS: Cephalexin 250 MG Cap PO SCH ×4 (01:17→18:39)
[2016-12-21] MEDS: Acetaminophen/HYDROcodone 325-5 MG Tab PO PRN ×2 (01:17→06:21)
[2016-12-21] MEDS: Levothyroxine 50 MCG Tab PO SCH (07:46)
[2016-12-21] MEDS: Furosemide 20 MG Tab PO SCH ×2 (07:46→12:02)
[2016-12-21] MEDS: Albuterol/Ipratropium 3.0-0.5 MG/3 ML Neb Soln NEB SCH ×2 (07:50→15:05)
[2016-12-21] MEDS: Sertraline 50 MG Tab PO SCH (08:40)
[2016-12-21] MEDS: Multivitamins with Minerals/Iron/Folic Acid/Lycopene Tab PO SCH (08:41)
[2016-12-21] MEDS: Naloxegol Oxalate 25 MG Tab PO SCH (08:42)
[2016-12-21] MEDS: LORazepam 0.5 MG Tab PO SCH ×2 (08:42→22:50)
[2016-12-21] MEDS: Methocarbamol 500 MG Tab PO SCH ×3 (08:43→20:39)
[2016-12-21] MEDS: Nicotine 21 MG/24 Hr Patch TRDERM SCH (08:44)
[2016-12-21] MEDS: Nicotine 14 MG/24 Hr Patch TRDERM SCH (08:46)
[2016-12-21] MEDS: Polyethylene Glycol 3350 Powder 17 GM Packet PO SCH (08:47)
[2016-12-21] MEDS: Enoxaparin 30 MG/0.3 ML Syringe SUBCUT SCH ×2 (08:47→20:38)
[2016-12-21] MEDS ORDERED: oxyCODONE 5 MG Tab PO PRN (09:24)
[2016-12-21] MEDS: Albuterol HFA 18 Gm Inhaler INH PRN ×2 (10:24→19:54)
[2016-12-21] MEDS: Acetaminophen 325 MG Tab PO SCH ×3 (10:43→22:51)
[2016-12-21] MEDS: Diclofenac Sodium 1% Gel 100 GM Tube TOP SCH ×3 (10:46→20:39)
[2016-12-21] MEDS: LORazepam 0.5 MG Tab PO PRN (18:41)
[2016-12-21] MEDS: Doxepin 25 MG Cap PO SCH (20:39)
[2016-12-22] MEDS: Acetaminophen/HYDROcodone 325-5 MG Tab PO PRN ×3 (00:18→16:36)
[2016-12-22] MEDS: Cephalexin 250 MG Cap PO SCH ×4 (00:19→18:33)
[2016-12-22] MEDS: Acetaminophen 325 MG Tab PO SCH ×3 (06:34→19:05)
[2016-12-22 07:36] LABS: CHLORIDE,CL 108 mmol/L (98-115); SODIUM,NA 144 mmol/L (136-145)
[2016-12-22] MEDS: Furosemide 20 MG Tab PO SCH ×2 (09:39→13:12)
[2016-12-22] MEDS: Levothyroxine 50 MCG Tab PO SCH (09:39)
[2016-12-22] MEDS: Diclofenac Sodium 1% Gel 100 GM Tube TOP SCH ×3 (09:49→21:10)
[2016-12-22] MEDS: Albuterol/Ipratropium 3.0-0.5 MG/3 ML Neb Soln NEB SCH ×2 (09:49→16:19)
[2016-12-22] MEDS: Multivitamins with Minerals/Iron/Folic Acid/Lycopene Tab PO SCH (10:07)
[2016-12-22] MEDS: Methocarbamol 500 MG Tab PO SCH ×3 (10:08→21:09)
[2016-12-22] MEDS: Naloxegol Oxalate 25 MG Tab PO SCH (10:08)
[2016-12-22] MEDS: Polyethylene Glycol 3350 Powder 17 GM Packet PO SCH (10:08)
[2016-12-22] MEDS: Sertraline 50 MG Tab PO SCH (10:09)
[2016-12-22] MEDS: Nicotine 21 MG/24 Hr Patch TRDERM SCH (10:10)
[2016-12-22] MEDS: Nicotine 14 MG/24 Hr Patch TRDERM SCH (10:10)
[2016-12-22] MEDS: LORazepam 0.5 MG Tab PO SCH ×2 (10:14→21:21)
[2016-12-22] MEDS: Enoxaparin 30 MG/0.3 ML Syringe SUBCUT SCH ×2 (10:18→21:12)
[2016-12-22] MEDS: Albuterol HFA 18 Gm Inhaler INH PRN (13:11)
[2016-12-22] MEDS: Doxepin 25 MG Cap PO SCH (21:10)
[2016-12-23] MEDS: Acetaminophen 325 MG Tab PO SCH ×4 (01:07→18:40)
[2016-12-23] MEDS: Cephalexin 250 MG Cap PO SCH ×4 (01:08→18:41)
[2016-12-23] MEDS: Acetaminophen/HYDROcodone 325-5 MG Tab PO PRN ×2 (01:09→20:04)
[2016-12-23] MEDS: Levothyroxine 50 MCG Tab PO SCH (07:38)
[2016-12-23] MEDS: Furosemide 20 MG Tab PO SCH ×2 (07:38→11:32)
[2016-12-23] MEDS: Polyethylene Glycol 3350 Powder 17 GM Packet PO SCH (08:57)
[2016-12-23] MEDS: Nicotine 21 MG/24 Hr Patch TRDERM SCH (08:58)
[2016-12-23] MEDS: LORazepam 0.5 MG Tab PO SCH ×2 (08:58→20:03)
[2016-12-23] MEDS: Nicotine 14 MG/24 Hr Patch TRDERM SCH (08:59)
[2016-12-23] MEDS: Methocarbamol 500 MG Tab PO SCH (09:01)
[2016-12-23] MEDS: Multivitamins with Minerals/Iron/Folic Acid/Lycopene Tab PO SCH (09:02)
[2016-12-23] MEDS: Naloxegol Oxalate 25 MG Tab PO SCH (09:02)
[2016-12-23] MEDS: Enoxaparin 30 MG/0.3 ML Syringe SUBCUT SCH (09:03)
[2016-12-23] MEDS: Diclofenac Sodium 1% Gel 100 GM Tube TOP SCH ×3 (09:03→20:03)
[2016-12-23] MEDS: Sertraline 50 MG Tab PO SCH (09:04)
[2016-12-23] MEDS: Albuterol/Ipratropium 3.0-0.5 MG/3 ML Neb Soln NEB SCH ×2 (09:25→17:21)
--- NOTE | 2016-12-23 11:19 | PCM.PN ---
- General Info Date of Service: 12/23/16 Functional Status: Reports: Pain Controlled, Tolerating Diet, Ambulating, Incentive Spirometry (2500 mL on incentive spirometer--maximum) - Review of Systems General: Denies: Fever, Weakness HEENT: Reports: No Symptoms Pulmonary: Denies: Shortness of Breath, Cough, Sputum Cardiovascular: Reports: Edema (Improving edema left knee and left thigh) Gastrointestinal: Reports: No Symptoms Genitourinary: Reports: No Symptoms Musculoskeletal: Reports: Shoulder Pain, Leg Pain (Much improved left leg pain) . Denies: Neck Pain, Back Pain Skin: Reports: Bruising (Bruising left knee postoperatively) Neurological: Reports: No Symptoms Psychiatric: Reports: Mood Lability (Recent of her sister abner, patient tearful) - Patient Data Vitals - Most Recent: Last Vital Signs Temp 97.8 F 12/23/16 06:32 Pulse 65 12/23/16 06:32 Resp 22 H 12/23/16 06:32 BP 106/61 12/23/16 06:32 Pulse Ox 98 12/23/16 06:32 Weight - Most Recent: 163 lb 9.6 oz I&O - Last 24 Hours: Intake & Output 12/22/16 12/23/16 12/23/16 22:59 06:59 14:59 Intake Total 1290 Output Total 1025 Balance 265 Fernando Results Last 24 Hours: Microbiology 12/20/16 09:20 Wound Culture - Final Knee, Right No Growth Med Orders - Current: Current Medications Acetaminophen (Tylenol) 650 mg PO Q6H [facility] Last Admin: 12/23/16 06:23 Dose: 650 mg Hydrocodone Bitart/Acetaminophen ([place] 325-5 Mg) 1 - 2 tab PO Q6H PRN PRN Reason: Pain Last Admin: 12/23/16 01:09 Dose: 1 tab Albuterol (Ventolin Hfa) 0 gm INH Q6H PRN PRN Reason: Wheezing Last Admin: 12/22/16 13:11 Dose: 2 puff Albuterol/Ipratropium (Duoneb 3.0-0.5 Mg/3 Ml) 3 ml NEB Q6HRRT PRN PRN Reason: Shortness of Breath Albuterol/Ipratropium (Duoneb 3.0-0.5 Mg/3 Ml) 3 ml NEB BID@0800,1600 [facility] Last Admin: 12/23/16 09:25 Dose: 3 ml Cephalexin (Keflex) 500 mg PO Q6H [facility] Last Admin: 12/23/16 06:24 Dose: 500 mg Diclofenac Sodium (Voltaren 1% Gel) 1 gm TOP TID [facility] Last Admin: 12/23/16 09:03 Dose: 1 applic Doxepin HCl (Sinequan) 150 mg PO BEDTIME [facility] Last Admin: 12/22/16 21:10 Dose: 150 mg Furosemide (Lasix) 20 mg PO BID@0730,1200 [facility] Last Admin: 12/23/16 07:38 Dose: 20 mg Lactulose (Cephulac) 20 gm PO DAILY PRN PRN Reason: CONSTIPATION Levothyroxine Sodium (Synthroid) 50 mcg PO ACBREAKFAST [facility] Last Admin: 12/23/16 07:38 Dose: 50 mcg Lorazepam (Ativan) 0.5 mg PO BID [facility] Last Admin: 12/23/16 08:58 Dose: 0.5 mg Lorazepam (Ativan) 0.5 mg PO DAILY PRN PRN Reason: Anxiety Last Admin: 12/21/16 18:41 Dose: 0.5 mg Meloxicam (Mobic) 15 mg PO WITHBREAKFAST [facility] Last Admin: 12/23/16 09:02 Dose: 15 mg Methocarbamol (Robaxin) 500 mg PO TID PRN PRN Reason: PAIN Multivitamins/Minerals (Centrum) 1 tab PO DAILY [facility] Last Admin: 12/23/16 09:02 Dose: 1 tab Nicotine (Habitrol) 21 mg TRDERM DAILY [facility] Last Admin: 12/23/16 08:58 Dose: 21 mg Nicotine (Habitrol) 14 mg TRDERM DAILY [facility] Last Admin: 12/23/16 08:59 Dose: 14 mg Oxycodone HCl (Oxycodone) 5 mg PO DAILY PRN PRN Reason: Pain (severe 7-10) Polyethylene Glycol (Miralax) 17 gm PO DAILY [facility] Last Admin: 12/23/16 08:57 Dose: 17 gm Ranitidine HCl (Zantac) 150 mg PO ACBREAKFAST [facility] Last Admin: 12/23/16 07:38 Dose: 150 mg Senna/Docusate Sodium (Senna Plus) 1 tab PO BID [facility] Last Admin: 12/23/16 09:01 Dose: 1 tab Sertraline HCl (Zoloft) 200 mg PO DAILY [facility] Last Admin: 12/23/16 09:04 Dose: 200 mg Discontinued Medications Acetaminophen (Tylenol) 650 mg PO Q6H [facility] Last Admin: 12/21/16 22:51 Dose: 650 mg Hydrocodone Bitart/Acetaminophen ([place] 325-5 Mg) 1 - 2 tab PO Q4H PRN PRN Reason: Pain Last Admin: 12/21/16 06:21 Dose: 2 tab Albuterol/Ipratropium (Duoneb 3.0-0.5 Mg/3 Ml) 3 ml NEB BIDRT [facility] Last Admin: 12/17/16 07:13 Dose: 3 ml Ceftriaxone Sodium (Rocephin) 1 gm IM ONETIME ONE Stop: 12/20/16 08:35 Last Admin: 12/20/16 09:16 Dose: 1 gm Enoxaparin Sodium (Lovenox) 30 mg SUBCUT BID [facility] Stop: 12/23/16 09:01 Last Admin: 12/23/16 09:03 Dose: 30 mg Furosemide (Lasix) 20 mg PO BIDDIURETIC [facility] Last Admin: 12/17/16 14:07 Dose: 20 mg Meloxicam (Mobic) 7.5 mg PO DAILY [facility] Last Admin: 12/21/16 08:41 Dose: 7.5 mg Meloxicam (Mobic) 7.5 mg PO ONETIME ONE Stop: 12/21/16 09:31 Last Admin: 12/21/16 10:45 Dose: 7.5 mg Methocarbamol (Robaxin) 500 mg PO TID [facility] Stop: 12/23/16 09:01 Last Admin: 12/23/16 09:01 Dose: 500 mg Methocarbamol (Robaxin) 500 mg PO TID PRN PRN Reason: Spasms Nicotine (Habitrol) 21 mg TRDERM DAILY [facility] Last Admin: 12/16/16 09:03 Dose: 21 mg Nicotine (Habitrol) 14 mg TRDERM DAILY [facility] Last Admin: 12/16/16 09:04 Dose: 14 mg Oxycodone HCl (Oxycodone) 10 mg PO ONETIME ONE Stop: 12/19/16 18:56 Last Admin: 12/19/16 19:19 Dose: 10 mg - Exam Quality Assessment: Supplemental Oxygen (Supplemental oxygen at night) General: Alert, Oriented, Mild Distress (Smiling upon entering room however tearful regarding recent of her sister ) Neck: Supple Lungs: Clear to Auscultation, Normal Respiratory Effort Cardiovascular: Regular Rate, Regular Rhythm Extremities: No Pedal Edema, Joint Swelling (Left knee edematous, however improving). No: Increased Warmth Skin: Rash, Other (Rash on inner left thigh much improved, no increase in warmth , receiving from marginal lines,) Wound/Incisions: Healing Well, No Drainage Psy/Mental Status: Labile Mood - Problem List Review Problem List Initiated/Reviewed/Updated: Yes - Plan Plan:: HISTORY OF PRESENT ILLNESS This 61 yo admitted to swing bed from [facility] where she underwent a left TKA on 12/13/[address] Domínguez--orthopedic surgeon. She states she is requiring retirement facility until modifications in her home were completed in which includes remodeling bathroom. He states she has a total of 16 steps in her home. she has 3 steps to enter home with all necessary items on main floor. The bathroom is on main level with active construction to convert tub into walk in shower. Her bedroom is up 13 steps. She would be fine sleeping on couch if needed until she can accomodate stairs. Goal is to return home as soon as able with controlled pain. CODE STATUS, full code Primary assessment/plan S/P Left TKA: Receiving physical therapy however anticipate short stay Chronic obstructive pulmonary disease, aggressive pulmonary toileting, ICS, duo nebs, oxygen support. Pain management,, last week decreased her opioid use by 50%, from 40mg MME to 20mg MME; added maximal scheduled Tylenol and NSAID creams--with 1 oxycodone 5 mg IR for breakthrough per day--to be schedule around her physical therapy Constipation, added Movantik. GI stress prophylaxis with con-conmitent GERD, will add H1 DVT prophylaxis, today's last day of Lovenox, she continues to ambulate SCDs Secondary assessment/plan Depression and anxiety: PTSD, ADHD, continue same Doxipan, zoloft and lorazepam. Exacerbated due to recent of sister--encourage prior guarding, healing garden outdoors sunshine History of ETOH dependence in remission. Hypothyroidism; TSH 2.4, on thyroid replacement therapy Nicotine dependence; on replacement therapy--exacerbating labile mood History of lower extremity edema. Home Lasix was 40mg a.m. and 20 mg p.m. Recently reduced to 20 mg twice a day bid Discharge planning, continue with PT, encourage NuStep today, holistic care explained to patient. Cellulitis much improved, will continue with Keflex. Long discussion with patient, outdoors today, prayer garden, sunshine, activities of the day room, getting fully dressed as she is not hospitalized only in rehabilitation. Incentive spirometer, anticipate being able to released from physical therapy soon as she appears to be able to accommodate her needs on main floor while her bathrooms upstairs is being remodeled. She will need outpatient PT.
[2016-12-23] MEDS: Albuterol HFA 18 Gm Inhaler INH PRN (14:42)
[2016-12-23] MEDS: Doxepin 25 MG Cap PO SCH (20:03)
[2016-12-23] MEDS: Methocarbamol 500 MG Tab PO PRN (22:02)
[2016-12-24] MEDS: Acetaminophen 325 MG Tab PO SCH ×4 (00:36→18:27)
[2016-12-24] MEDS: Cephalexin 250 MG Cap PO SCH ×4 (00:37→18:27)
[2016-12-24] MEDS: Furosemide 20 MG Tab PO SCH ×2 (07:59→12:22)
[2016-12-24] MEDS: Levothyroxine 50 MCG Tab PO SCH (07:59)
[2016-12-24] MEDS: Methocarbamol 500 MG Tab PO PRN (07:59)
[2016-12-24] MEDS: LORazepam 0.5 MG Tab PO SCH ×2 (08:00→20:51)
[2016-12-24] MEDS: Naloxegol Oxalate 25 MG Tab PO SCH (08:01)
[2016-12-24] MEDS: Multivitamins with Minerals/Iron/Folic Acid/Lycopene Tab PO SCH (08:02)
[2016-12-24] MEDS: Sertraline 50 MG Tab PO SCH (08:02)
[2016-12-24] MEDS: Nicotine 14 MG/24 Hr Patch TRDERM SCH (08:05)
[2016-12-24] MEDS: Nicotine 21 MG/24 Hr Patch TRDERM SCH (08:05)
[2016-12-24] MEDS: Polyethylene Glycol 3350 Powder 17 GM Packet PO SCH (08:06)
[2016-12-24] MEDS: Acetaminophen/HYDROcodone 325-5 MG Tab PO PRN ×2 (08:11→20:56)
[2016-12-24] MEDS: Albuterol/Ipratropium 3.0-0.5 MG/3 ML Neb Soln NEB SCH ×2 (08:30→16:05)
[2016-12-24] MEDS: Diclofenac Sodium 1% Gel 100 GM Tube TOP SCH ×3 (08:40→20:52)
[2016-12-24] MEDS: Doxepin 25 MG Cap PO SCH (20:52)
[2016-12-25] MEDS: Cephalexin 250 MG Cap PO SCH ×4 (01:03→18:53)
[2016-12-25] MEDS: Acetaminophen 325 MG Tab PO SCH ×4 (01:03→18:52)
[2016-12-25] MEDS: Furosemide 20 MG Tab PO SCH ×2 (07:38→11:37)
[2016-12-25] MEDS: Levothyroxine 50 MCG Tab PO SCH (07:38)
[2016-12-25] MEDS: Polyethylene Glycol 3350 Powder 17 GM Packet PO SCH (08:23)
[2016-12-25] MEDS: Sertraline 50 MG Tab PO SCH (08:24)
[2016-12-25] MEDS: Multivitamins with Minerals/Iron/Folic Acid/Lycopene Tab PO SCH (08:25)
[2016-12-25] MEDS: Nicotine 14 MG/24 Hr Patch TRDERM SCH (08:25)
[2016-12-25] MEDS: Diclofenac Sodium 1% Gel 100 GM Tube TOP SCH ×3 (08:25→20:29)
[2016-12-25] MEDS: Naloxegol Oxalate 25 MG Tab PO SCH (08:25)
[2016-12-25] MEDS: Nicotine 21 MG/24 Hr Patch TRDERM SCH (08:26)
[2016-12-25] MEDS: Acetaminophen/HYDROcodone 325-5 MG Tab PO PRN ×2 (08:31→20:35)
[2016-12-25] MEDS: LORazepam 0.5 MG Tab PO SCH ×2 (08:32→20:28)
[2016-12-25] MEDS: Albuterol/Ipratropium 3.0-0.5 MG/3 ML Neb Soln NEB SCH ×2 (08:59→16:12)
[2016-12-25] MEDS: Albuterol HFA 18 Gm Inhaler INH PRN (11:37)
[2016-12-25] MEDS: Doxepin 25 MG Cap PO SCH (20:28)
[2016-12-26] MEDS: Acetaminophen 325 MG Tab PO SCH ×4 (01:07→19:04)
[2016-12-26] MEDS: Cephalexin 250 MG Cap PO SCH ×4 (01:07→19:05)
[2016-12-26] MEDS: LORazepam 0.5 MG Tab PO PRN (01:12)
[2016-12-26] MEDS: Levothyroxine 50 MCG Tab PO SCH (07:51)
[2016-12-26] MEDS: Furosemide 20 MG Tab PO SCH ×2 (07:51→11:45)
[2016-12-26] MEDS: Multivitamins with Minerals/Iron/Folic Acid/Lycopene Tab PO SCH (08:18)
[2016-12-26] MEDS: Sertraline 50 MG Tab PO SCH (08:18)
[2016-12-26] MEDS: Naloxegol Oxalate 25 MG Tab PO SCH (08:19)
[2016-12-26] MEDS: LORazepam 0.5 MG Tab PO SCH ×2 (08:20→21:30)
[2016-12-26] MEDS: Polyethylene Glycol 3350 Powder 17 GM Packet PO SCH (08:20)
[2016-12-26] MEDS: Diclofenac Sodium 1% Gel 100 GM Tube TOP SCH ×3 (08:21→21:31)
[2016-12-26] MEDS: Nicotine 14 MG/24 Hr Patch TRDERM SCH (08:21)
[2016-12-26] MEDS: Nicotine 21 MG/24 Hr Patch TRDERM SCH (08:21)
[2016-12-26] MEDS: Acetaminophen/HYDROcodone 325-5 MG Tab PO PRN ×2 (08:26→21:32)
[2016-12-26] MEDS: Albuterol/Ipratropium 3.0-0.5 MG/3 ML Neb Soln NEB SCH ×2 (08:30→16:19)
[2016-12-26] MEDS: Doxepin 25 MG Cap PO SCH (21:31)
[2016-12-27] MEDS: Cephalexin 250 MG Cap PO SCH ×4 (00:52→18:55)
[2016-12-27] MEDS: Acetaminophen 325 MG Tab PO SCH ×4 (00:52→18:56)
[2016-12-27] MEDS: Levothyroxine 50 MCG Tab PO SCH (08:04)
[2016-12-27] MEDS: Furosemide 20 MG Tab PO SCH ×2 (08:04→11:17)
[2016-12-27] MEDS: Sertraline 50 MG Tab PO SCH (08:05)
[2016-12-27] MEDS: Naloxegol Oxalate 25 MG Tab PO SCH (08:05)
[2016-12-27] MEDS: Multivitamins with Minerals/Iron/Folic Acid/Lycopene Tab PO SCH (08:05)
[2016-12-27] MEDS: Polyethylene Glycol 3350 Powder 17 GM Packet PO SCH (08:05)
[2016-12-27] MEDS: LORazepam 0.5 MG Tab PO SCH ×2 (08:10→21:13)
[2016-12-27] MEDS: Acetaminophen/HYDROcodone 325-5 MG Tab PO PRN ×2 (08:10→21:15)
[2016-12-27] MEDS: Diclofenac Sodium 1% Gel 100 GM Tube TOP SCH ×3 (08:10→21:15)
[2016-12-27] MEDS: Nicotine 21 MG/24 Hr Patch TRDERM SCH (08:19)
[2016-12-27] MEDS: Nicotine 14 MG/24 Hr Patch TRDERM SCH (08:20)
[2016-12-27] MEDS: Albuterol/Ipratropium 3.0-0.5 MG/3 ML Neb Soln NEB SCH ×2 (08:38→15:44)
[2016-12-27] MEDS: Methocarbamol 500 MG Tab PO PRN ×2 (16:01→21:18)
[2016-12-27] MEDS: Doxepin 25 MG Cap PO SCH (21:14)
[2016-12-28] MEDS: Acetaminophen 325 MG Tab PO SCH ×2 (00:57→06:16)
[2016-12-28] MEDS: Cephalexin 250 MG Cap PO SCH ×2 (00:57→06:16)
[2016-12-28 06:51] VITALS: BP 107/66
[2016-12-28] MEDS: Furosemide 20 MG Tab PO SCH (07:52)
[2016-12-28] MEDS: Levothyroxine 50 MCG Tab PO SCH (07:52)
[2016-12-28] MEDS: Naloxegol Oxalate 25 MG Tab PO SCH (08:38)
[2016-12-28] MEDS: Nicotine 21 MG/24 Hr Patch TRDERM SCH (08:39)
[2016-12-28] MEDS: Polyethylene Glycol 3350 Powder 17 GM Packet PO SCH (08:39)
[2016-12-28] MEDS: Nicotine 14 MG/24 Hr Patch TRDERM SCH (08:39)
[2016-12-28] MEDS: Albuterol/Ipratropium 3.0-0.5 MG/3 ML Neb Soln NEB SCH (08:40)
[2016-12-28] MEDS: Multivitamins with Minerals/Iron/Folic Acid/Lycopene Tab PO SCH (08:40)
[2016-12-28] MEDS: Diclofenac Sodium 1% Gel 100 GM Tube TOP SCH (08:41)
[2016-12-28] MEDS: Sertraline 50 MG Tab PO SCH (08:41)
[2016-12-28] MEDS: LORazepam 0.5 MG Tab PO SCH (10:02)
[2016-12-28] MEDS: Acetaminophen/HYDROcodone 325-5 MG Tab PO PRN (10:52)
--- NOTE | 2016-12-31 08:39 | DISCH ---
FINAL DIAGNOSES: Status post left total knee arthroplasty on 12/13/2016; cellulitis, 99% resolved, left anterior thigh; depression and anxiety with PTSD and ADHD, exacerbated slightly by the recent of her sister; history of ETOH dependency; tobacco dependency; hypothyroidism. BRIEF HISTORY: This 61-year-old female was admitted to swing bed therapy after she underwent a left TKA by Dr. Domínguez, orthopedic surgeon. She did have some home modifications that needed to be worked on, so she was placed in swing bed therapy postoperatively. Her surgery was in [facility]. HOSPITAL COURSE: Hospital course went fairly well. She did have good pain control. I was able to reduce her opioid therapy by at least 60% upon discharge. She did have a sister who had in [place], and this did exacerbate her PTSD and depression. This was treated with healing [place] and family and reassurance. She did remain in physical therapy. She was able to get not quite full flexion. She is up to approximately 100 to 118 degrees of her left knee. She did have slight cellulitis of her upper inner thigh early on admission. She was given Keflex. She is approximately 99% improved on this. She did not want to travel for her orthopedic followup appointment. I made consultation with Dr. Domínguez's office. This was okay by him as long as the patient was doing well, maintaining physical therapy, was able to get appropriate flexion. We did remove the Dermabond and she had no wound dehiscence. No increase in pain. No signs of infection. She did have a mild respiratory exacerbation early on postoperatively. She was treated with aggressive pulmonary toileting, incentive spirometer, DuoNebs and oxygen. She did well. She was off oxygen when she left. She got quite agitated at times with the staff, wanting to go home to smoke. A pass was not given to her. However, she was able to visit with family here and in the prayer garden, healing garden, and in the day room, and she did quite well. She did receive physical therapy while she was in the hospital. I did add Movantik due to grow opioid-induced constipation. This was improved. PHYSICAL EXAMINATION: VITAL SIGNS: On discharge, blood pressure 106/66, heart rate 67, temperature 98.7, respiratory rate 18, O2 saturations without oxygen on room air 95%. LUNGS: Clear. Slight little rhonchus on her left side. CV: Regular rate and rhythm with no murmur. NEUROLOGIC: She was alert and oriented. She was smiling. INTEGUMENTARY: Left leg, very slight erythema, much improved. Unable to demarcate area. Left knee is mildly edematous. No wound dehiscence. No increase in warmth. EXTREMITIES: Good pulses. Range of motion, flexion is 110 to 115 degrees. LABORATORY DATA: Most recent labs 3 days ago, white count 4.0, hemoglobin 10, hematocrit 30.7. Electrolytes were normal. TSH 1.4. MEDICATIONS ON DISCHARGE: 1. Hydrocodone 5/325 one tablet every 12 hours p.r.n. for pain. She should take this prior to her PT. 2. Nicotine transdermal patch a 14 mg and a 21 mg. Also, I filled her thyroid medication. The patient can continue taking all other home medications except discontinue Lovenox. FOLLOWUP AND DISPOSITION: Nursing staff will ensure proper followup with orthopedic surgeon, Dr. Domínguez, likely the 24th here at [facility]. She is to report any worsening pain. She will continue with physical therapy two or three times a week at [facility]. She is supposed to report any increase in pain, wound dehiscence, any drainage or redness, worsening cellulitis, or worsening of her COPD exacerbation. Extensive education regarding smoking cessation. She had gone 16 days without a cigarette. This patient is in contemplation phase of quitting. I will fill her nicotine patch. Uncertain if she will comply with this or not. MEDICAL DECISION MAKIN minutes spent on this discharge planning and process. /[id number]/MODL
== END 2016-12-28 11:10 | disposition home or self-care (01) | DRG 560 ==
LOC: KA.MS 13:53
PROVIDERS: ADMIT Nurse Practitioner Family; ATTEND Family Medicine
DX: Z47.1 Aftercare following joint replacement surgery (principal); J44.1 Chronic obstructive pulmonary disease with (acute) exacerbation; E03.9 Hypothyroidism, unspecified; F41.8 Other specified anxiety disorders; F43.10 Post-traumatic stress disorder, unspecified; F90.9 Attention-deficit hyperactivity disorder, unspecified type; F17.200 Nicotine dependence, unspecified, uncomplicated; K59.03 Drug induced constipation; T40.2X5A Adverse effect of other opioids, initial encounter; Y92.230 Patient room in hospital as the place of occurrence of the external cause; K21.9 Gastro-esophageal reflux disease without esophagitis; F10.21 Alcohol dependence, in remission; Z91.040 Latex allergy status; Z96.652 Presence of left artificial knee joint; Z88.8 Allergy status to other drugs, medicaments and biological substances; Z79.899 Other long term (current) drug therapy
CPT/HCPCS: 36415; 80048; 84443; 85025; 87070; 94640; 97110-GP; 97162-GP; 97530-GP; A9270-GY; J0696; J1650